=== PATIENT | male | born 1950 | race Caucasian/White ===

== ENCOUNTER 2019-08-09 01:00 | Outpatient (CLI) | payer MEDICARE, SELFPAY ==
[2019-08-09] MEDS: Normal Saline Flush 10 ML SYR IVP (08:29)
[2019-08-09] MEDS: Gadoterate meglumine 20 ML VIAL IVP (08:30)
--- NOTE | 2019-08-09 08:45 | DI.MRI_ITS ---
EXAM: MR BRAIN WO/W CLINICAL HISTORY: MALIGNANT MELANOMA OF [place]OR[place],C43.59,METASTATIC. TECHNIQUE: Multiplanar multisequence MRI was performed. COMPARISON: No exams were available for comparison FINDINGS: MR examination of the brain was performed according to the usual protocol with additional post contra st axial and coronal T1 weighted imaging. There is an apparent small area of old infarction in the right parietal white matter posteriorly. No evidence of intracranial mass lesion or enhancing lesion. No signal abnormality identified in the b rain. Diffusion weighted imaging is within normal limits. Susceptibility weighted imaging shows no evidence of hemorrhage. The orbits appear intact. Temporal bone structures appear intact. Pituitar y is unremarkable. There is normal flow void in the [place] vasculature IMPRESSION: Negative brain MRI. No evidence of metastatic disease.
== END 2019-08-09 01:20 ==
PROVIDERS: PCP Internal Medicine; Visit Provider Internal Medicine Hospice and Palliative Medicine
DX: C43.59 Malignant melanoma of other part of trunk (principal); I63.9 Cerebral infarction, unspecified; Z45.2 Encounter for adjustment and management of vascular access device
CPT/HCPCS: 70553; 96523

== ENCOUNTER 2019-08-09 02:14 | Outpatient (RCR) | payer MEDICARE, SELFPAY ==
[2019-08-09] MEDS: Normal Saline Flush 10 ML SYR IVP (09:49)
[2019-08-09] MEDS: Heparin 500 UNITS/5 ML SYRINGE IV (09:49)
== END 2019-08-30 23:59 | disposition home or self-care (01) ==
LOC: INF 02:14
PROVIDERS: PCP Internal Medicine; Visit Provider Internal Medicine Hospice and Palliative Medicine
DX: Z45.2 Encounter for adjustment and management of vascular access device (principal)
CPT/HCPCS: 96523

== ENCOUNTER 2019-08-15 14:04 | Emergency (ER) | payer MEDICARE, SELFPAY ==
[2019-08-15] VITALS (37 sets, daily range): BP systolic 97–137; BP diastolic 36–58; PULSE 42–64; RESP 12–23; TEMP 36–36.7; O2SAT 90–100
--- NOTE | 2019-08-15 14:29 | ED.GENADUL_ITS ---
Discharge Plan Disposition Patient Disposition: OTHER Condition: Stable Discharge Details Chief Complaint: GenMedical Clinical Impression: Diverticulitis of sigmoid colon, Acute hyponatremia Primary Care Provider: Gabino Dalton ED Provider: Rocky Cormier Home Meds and New Rx's Prescriptions: No Action aspirin 325 mg Tablet 325 mg PO Q4H RF: 0 lisinopril 20 mg Tablet 20 mg PO DAILY RF: 0 simvastatin 40 mg Tablet 40 mg PO DAILY RF: 0 ondansetron 8 mg Tablet,Disintegrating 8 mg PO Q8H RF: 0 naproxen sodium [Aleve] 220 mg Tablet 220 mg PO Q8H PRNRF: 0 bisacodyl [Dulcolax (bisacodyl)] 5 mg Tablet,Delayed Release (Dr/Ec) 5 mg PO QHS RF: 0 furosemide 20 mg Tablet 20 mg PO BID RF: 0 prednisolone 5 mg Tablet 5 mg RF: 0 temozolomide 180 mg Capsule 360 mg PO RF: 0 levothyroxine 75 mcg Capsule 75 mcg PO DAILY RF: 0 Xarelto 15 mg Tablet 15 mg PO DAILY RF: 0 Medical Decision Making 68-year-old male with widely metastatic malignant melanoma who presents with hours of abdominal cramps, subjective fever and chills. On exam of the abdomen, he is mildly bloated and diffusely tender. Guaiac positive brown stool. Vital signs are reassuring with a blood pressure 127/51, temp of 36.7. Differential diagnosis includes colitis, diverticulitis, obstruction, metastatic disease burden, dehydration. The patient and his brother state that he has had long-standing, lifelong bradycardia with pulses in the 40s. He says he was under consideration for pacemaker which he declined. States he is anticoagulated for fluttering in his heart, likely paroxysmal atrial fibrillation. He states he wishes to be DNR/DNI. IV placed, screening labs including lactate, blood culture, CBC and conference of panel obtained. Patient given IV fluids, antiemetic and referred for CT images. Labs are notable for white blood cell count of 14, hematocrit 38, platelets 312. Sodium is low at 123, potassium is 5.3, chloride 90, bicarb 24, BUN 27, creatinine 2.0 which is increased since most recent of 1.3. Lactic acid 1.1. Total bili slightly elevated at 1.6. AST 40, ALT 35 Images notable for chronic bilateral rib fractures, chronic compression deformity of T7. No other acute findings on chest images. Abdomen reveals evidence of mild fat stranding adjacent to several diverticuli. No abscess. No evidence of obstruction. Concerning for acute uncomplicated sigmoid diverticulitis. Treatment initiated with Zosyn. No beds available at [facility] for admission. No beds available at [facility]. Closest available open and appropriate that is at [facility] in [place]. Case was discussed with Ashley Vogt NP and patient accepted in transfer. Lab Data Lab results reviewed: Yes I reviewed the patient's lab results. Labs: Laboratory Results - last 24 hr 08/15/19 08/15/19 08/15/19 14:32 14:50 14:50 WBC RBC Hgb Hct MCV MCH MCHC RDW Plt Count MPV Immature Gran % Neutrophils % Lymphocytes % Atypical Lymphs % Monocytes % Eosinophils % Basophils % Absolute Neutrophils Absolute Lymphocytes Absolute Monocytes Absolute Eosinophils Absolute Basophils Differential Comment RBC Morphology Sodium 123 L* Potassium 5.3 H Chloride 90 L Carbon Dioxide 24.8 Anion Gap 8.2 BUN 27 H Creatinine 2.05 H Estimated GFR/1.73 m2 32.65 Glucose 101 H Lactate 1.1 Calcium 8.8 Total Bilirubin 1.6 H AST 48 H ALT 35 Alkaline Phosphatase 169 H Total Protein 7.3 Albumin 3.2 L Stl Occ[facility] Cancelled 08/15/19 14:50 WBC 14.47 H RBC 4.23 L Hgb 13.0 L Hct 38.0 L MCV 89.8 MCH 30.7 MCHC 34.2 RDW 13.4 Plt Count 312 MPV 10.4 Immature Gran % See Differential Neutrophils % 75.0 Lymphocytes % 11.0 Atypical Lymphs % 2 Monocytes % 11.0 Eosinophils % 1.0 Basophils % 0.0 Absolute Neutrophils 10.85 H Absolute Lymphocytes 1.88 Absolute Monocytes 1.59 H Absolute Eosinophils 0.14 Absolute Basophils 0.00 Differential Comment Manual differential RBC Morphology Normal Sodium Potassium Chloride Carbon Dioxide Anion Gap BUN Creatinine Estimated GFR/1.73 m2 Glucose Lactate Calcium Total Bilirubin AST ALT Alkaline Phosphatase Total Protein Albumin Stl Occult Bld Clinic ECG Data Attestation: I personally reviewed and interpreted this ECG (s) as follows: Interpretation: Bradycardic rhythm with a rate approximately 48, probable underlying sinus rhythm with P waves difficult to perceive. HPI General Mode of arrival: ambulatory . Date/Time Provider Initiated Documentation: 08/15/19 14:05 . Limitations to Documentation: no limitations . Information obtained by: patient and family . History of Present Illness 68 year old M presents to the emergency department with the chief complaint of Metastatic melanoma, now with abdominal cramps and fever, described as moderate, Quality is described as constant, and is localized to the abdomen. Patient started experiencing this hour(s) and it has been constant. No relieving factors improve symptom(s), No exacerbating factors reported . Patient notes fever/chills and nausea/vomiting. Patient did receive the following treatments prior to arrival, other (Dulcolax) Related Data Home Medications Medication Instructions Recorded Confirmed aspirin 325 mg PO Q4H 08/15/19 08/15/19 bisacodyl [Dulcolax (bisacodyl)] 5 mg PO QHS 08/15/19 08/15/19 furosemide 20 mg PO BID 08/15/19 08/15/19 levothyroxine 75 mcg PO DAILY 08/15/19 08/15/19 lisinopril 20 mg PO DAILY 08/15/19 08/15/19 naproxen sodium [Aleve] 220 mg PO Q8H PRN 08/15/19 08/15/19 ondansetron 8 mg PO Q8H 08/15/19 08/15/19 prednisolone 5 mg 08/15/19 rivaroxaban [Xarelto] 15 mg PO DAILY 08/15/19 08/15/19 simvastatin 40 mg PO DAILY 08/15/19 08/15/19 temozolomide 360 mg PO 08/15/19 Allergies Allergy/AdvReac Type Severity Reaction Status Date / Time No Known Allergies Allergy Unverified 08/15/19 14:21 General Stated Complaint: GenMedical KENDAL: 3 Review of Systems Review of Systems Narrative: Subjective fever and chills, bloated and belching. States he had bloody tinged stool this morning. On oral chemotherapy. Denies chest pain or cough. 8 systems reviewed and otherwise negative [facility] Social History Smoking/Tobacco Use Status: Former Tobacco Use Alcohol Intake: former Drug use: Never Do you feel safe at home: Yes Exam Narrative Exam Narrative: GEN: awake, alert, oriented 3. Pleasant, well groomed, interactive. HEAD: Normocephalic, atraumatic ENT: Mucous membranes moist, oropharynx unremarkable, External ear exam unremarkable EYES: PERRL, EOMI NECK: Full ROM, no YARELIS, no menigismus CHEST/RESP: Nontender, clear to auscultation bilateral, no wheeze/rhonchi/rales CARDIOVASCULAR: Distant, borderline bradycardic, no murmur, rub or Victor Hugo appreciated. 2+ Rad pulse bilateral ABDOMEN: Distended, diffusely tender, mild rebound present, no mass. +Bowel sounds EXT: Full ROM, no edema, no rash Neuro: Grossly normal neurologic exam, conversant, interactive. Psych: Speech fluent, thoughts congruent, affect normal Course Vital Signs Vital signs: Vital Signs Pulse 46 L 08/15/19 14:10 Respiratory Rate 18 08/15/19 14:10 Blood Pressure 127/51 L 08/15/19 14:10 Pulse Oximetry 100 08/15/19 14:10 Pulse 46 L 08/15/19 14:10 Respiratory Rate 18 08/15/19 14:10 Respiratory Effort Non-Labored 08/15/19 14:19 Blood Pressure 127/51 L 08/15/19 14:10 Blood Pressure Position Sitting 08/15/19 14:10 Pulse Oximetry 100 08/15/19 14:10 Oxygen Delivery Method Room Air 08/15/19 14:10 Oxygen Flow Rate 0 08/15/19 14:10
[2019-08-15] MEDS: Normal Saline 1,000 ML 125 ML IV (14:30)
[2019-08-15] MEDS: Ondansetron 4 MG/2 ML VIAL IVP ×2 (14:57→19:54)
[2019-08-15 15:00] LABS: Lactate 1.1 mmol/L (0.6-1.4)
[2019-08-15 15:07] LABS: Absolute Eosinophil Count 0.14 k/cumm (0.0-0.7); Mean Corp. HGB Concentration 34.2 g/dL (32.0-36.0); Mean Corpuscular Hemoglobin 30.7 pg (27.0-33.0); Mean Corpuscular Volume 89.8 fL (80-95); Mean Platelet Volume 10.4 fL (8.0-11.0); Platelet Count 312 x1000/uL (130-400); RBC 4.23 m/cumm (4.50-6.00); RBC Distribution Width 13.4 % (11.8-14.1); White Blood Cell Count 14.47 k/cumm (4.4-10.8)
[2019-08-15 15:23] LABS: ALT 35 U/L (16-63); AST 48 U/L (15-37); Albumin 3.2 g/dL (3.4-5.0); Alkaline Phosphatase 169 U/L (46-116); Anion Gap 8.2 mmol/L (3-11); BUN 27 mg/dL (7-18); Bilirubin, Total 1.6 mg/dL (0.2-1.0); CO2 24.8 mmol/L (21.0-32.0); CREATININE 2.05 mg/dL (0.70-1.30); Calcium 8.8 mg/dL (8.5-10.1); Chloride 90 mmol/L (98-107); Estimated GFR 32.65 (mL/min/1.73m2); Glucose 101 mg/dL (70-100); Potassium 5.3 mmol/L (3.5-5.1); Total Protein 7.3 g/dL (6.4-8.2)
[2019-08-15 15:27] LABS: Sodium 123 mmol/L (136-145)
[2019-08-15 15:32] LABS: Absolute Lymphocyte Count 1.88 k/cumm (1.2-3.4); Absolute Monocyte Count 1.59 k/cumm (0.11-0.7); Absolute Neutrophil Count 10.85 k/cumm (1.2-6.7); Atypical Lymphocytes % 2; Diff Comment Manual Differential; RBC Morphology Normal
--- NOTE | 2019-08-15 15:50 | DI.CT_ITS ---
EXAM: CT CHEST/ABD/PEL WO CLINICAL HISTORY: metastatic cancer, diffuse abdominal pain, bloatin TECHNIQUE: Noncontrast. COMPARISON: No exams were available for comparison FINDINGS: There are spinal rods which causes artifact in the chest. Heart size is within normal limits. No p leural or pericardial effusions are seen. There is no aortic aneurysm. There are coronary artery ca lcifications as well as sternal wires. A port is seen over the left pectoral muscle. The tip extend s into the lower SVC. Mild atelectasis in the medial right middle lobe. No infiltrates or pulmonary nodules are seen. There is a 1.4 centimeter lymph noted epicardial fat. Additional 8 millimeter no de is seen in the epicardial fat. No hilar adenopathy is seen. Images of the abdomen is somewhat limited by patient motion. There is a low-density lesion in the le ft lobe of the liver. The liver is poorly evaluated without IV contrast at the as well as motion art ifact. The spleen, pancreas, adrenals and kidneys are unremarkable. There is no ascites. Patient i s status post cholecystectomy. There is no biliary dilatation. There is diverticulosis of the is si gmoid thickening and mild surrounding inflammation. There is no abscess or evidence of perforation. The appendix appears normal. There is no small bowel dilatation. There are scattered nodules in th e mesenteric and retroperitoneal fat presumably related to patient's known history of metastatic dise ase. The bladder and prostate are unremarkable. Is a compression fracture of L1. There is L5 spond ylolysis and mild L5-S1 spondylolisthesis. Degenerative disc bulging is seen at multiple levels. Th ere is no gross destructive bony lesion. IMPRESSION: Mild sigmoid diverticulitis. Multiple nodules in the peritoneal and retroperitoneal fat consistent with metastatic disease. A Live r metastasis is also seen.
--- NOTE | 2019-08-15 16:46 | DI.VRAD_ITS ---
PROCEDURE INFORMATION: Exam: CT Chest Without Contrast Exam date and time: 08/15/2019 3:48 PM Clinical history: 68 years old, male; Abdominal pain and other: Bloating, diffuse abdominal pain. ; Other: Metastatic cancer; Prior surgery TECHNIQUE: Imaging protocol: Computed tomography of the chest without contrast. COMPARISON: No relevant prior studies available. FINDINGS: Tubes, catheters and devices: Left-sided medication port, tip terminating at the cavoatrial junction. Lungs: Linear atelectasis in the anterior right upper lobe. Pleural space: No pleural effusion or pneumothorax. Heart: Mild to moderate calcifications of the coronary arteries. Aorta: Mild atherosclerotic calcifications of the aorta. Lymph nodes: Small pericardial lymph nodes. No pathologically enlarged mediastinal or hilar lymph nodes. Bones/joints: Chronic bilateral rib fractures. Median sternotomy wires. Chronic compression deformity of T7. Posterior instrumented fusion hardware from T4 through T11. No acute fracture. Soft tissues: Unremarkable. IMPRESSION: 1. No acute findings pneumothorax. 2. Other chronic findings, as above. PROCEDURE INFORMATION: Exam: CT Abdomen And Pelvis Without Contrast Exam date and time: 08/15/2019 3:48 PM Clinical history: 68 years old, male; Abdominal pain and other: Bloating, diffuse abdominal pain. ; Other: Metastatic cancer; Prior surgery TECHNIQUE: Imaging protocol: Computed tomography of the abdomen and pelvis without contrast. COMPARISON: No relevant prior studies available. FINDINGS: Liver: Unremarkable. Gallbladder and bile ducts: The gallbladder is surgically absent. Pancreas: Unremarkable. No ductal dilation. Spleen: Unremarkable. Adrenals: Unremarkable. Kidneys and ureters: No hydronephrosis or stones. Stomach and bowel: Mild fat stranding adjacent to several diverticuli in the sigmoid colon. No adjacent abscess. Small bowel loops are unremarkable. Appendix: No evidence of appendicitis. Intraperitoneal space: No pneumoperitoneum. No significant fluid collection. Vasculature: Atherosclerotic calcifications of the aorta and major branches. Lymph nodes: No enlarged lymph nodes. Bladder: Unremarkable. Reproductive: Unremarkable as visualized. Bones/joints: Chronic mild compression deformity of the superior endplate of L1. Multilevel degenerative changes of the visualized spine. No acute osseous lesion or fracture. Soft tissues: Small fat containing right inguinal hernia. Small fat containing left inguinal hernia. IMPRESSION: 1. Findings concerning for acute uncomplicated sigmoid diverticulitis. 2. Other chronic findings, as above. Dictated and Authenticated by: Clayton Mcneil MD. Ordering:ZAFAR Hidalgo MD
[2019-08-15] MEDS: HYDROmorphone 2 MG/ML VIAL 0.5 MG IVP ×2 (17:27→19:25)
[2019-08-15] MEDS: PIPERACILLIN/TAZO 3.375 GM in Normal Saline 50 ML IVPB (17:28)
--- NOTE | 2019-08-15 19:48 | CMPROGNOTE_ITS ---
- If Service Date Differs Date of service: 08/15/19 Time of Service: 19:48 Care Management Progress Note S/O: Marcial lives alone in [place], [place]. He reports having two adult children but both live out of state ([place] and [place]). He does have the support of a brother who is present at the hospital. Marcial has a diagnosis of metastatic malignant melanoma. Dr. Cormier asks that CM meet with Marcial because he requires an inpatient hospitalization and [facility] in [place], [place], is the closest hospital accepting patients. Marcial is hesitant to go to [facility] via [facility] due to concerns about the cost of the ambulance service. Marcial's health insurance is Medicare. CM explains to him that Medicare will pay most of the ambulance cost, as this is a medically necessary hospitalization and [facility] is the nearest facility accepting patients for admission at this time. He is further advised to contact Care Management if he receives a bill from [facility] that he is unable to pay and CM will assist him in exploring additional options. A: Marcial is a 68 year old male who presents in the ED after hours of abdominal cramping, subjective fever and chills. P: [facility] has accepted Marcial for admission. [facility] is transporting.
[2019-08-15] MEDS: Simethicone 80 MG CHEW 40 MG PO (19:54)
== END 2019-08-15 20:07 | disposition other institution (70) ==
PROVIDERS: Emergency Provider Emergency Medicine; PCP Internal Medicine
DX: K57.30 Diverticulosis of large intestine without perforation or abscess without bleeding (principal); E87.1 Hypo-osmolality and hyponatremia; Z79.01 Long term (current) use of anticoagulants
CPT/HCPCS: 36415; 36416; 71250; 80053; 82962; 87040; 93005; 96361; 96365; 96375; 96376; 99285; 74176; 83605; 85025; 93010; 99284; J2405; J2543